=== PATIENT | male | born 1945 | race Caucasian/White ===

== ENCOUNTER 2020-12-28 14:23 | Emergency (ER) | payer OTHER ==
[~2020-12-28] VITALS: Ht 182.9 cm; Wt 77.1 kg
--- NOTE | ~2020-12-28 | EMS ---
[facility] [address] [place] [address] EMS Patient Care Report Name: RENETTA GAY Room #: DEP KATE Silverman#: [id number] Admission: 12/28/20 Attend Phys: Discharge: 12/28/20 Date of : 43 Report #: [id number] THIS REPORT FOR: //name// Report Transmitted: 12/29/2020 07:45 EMS Care Summary [facility] [id number] @ 12/28/2020 13:15 Incident Location [address] [facility] 112 Patient RENETTA GAY Male, 75 Years 1945 Patient Address [address] [place] [address] Patient History Diabetes,Novel Coronavirus (COVID-19), Patient Allergies No known allergies, Chief Complaint pulled out picc line Disposition Transported No Lights/[place] Dispatch Reason Sick Person Transported To [facility] Narrative chief complaint: 75 y/o male needing a picc line placed. tech states: doctor order that pt needs a picc line placed, we do not have a picc team here so he needs to go to hospital. he is covid positive for about a [facility] [address] [place] [address] EMS Patient Care Report Name: RENETTA GAY Room #: DEP KATE Silverman#: [id number] Admission: 12/28/20 Attend Phys: Discharge: 12/28/20 Date of : 43 Report #: [id number] week. vitals are stable and is at his baseline a&o x4 with some bouts of slight confusion pt denies: cp,sob(at first)n/v/d,pain aos found pt in bed with abcs intact. received report from staff of prison. n95 was placed on pt as pt was covid positive. pt was transferred to stretcher via sheet drag maneuver. pts vitals and loc were assessed. diverted by several hospitals due to high volume. pt became uncooperative with his mask taking it off stating trouble breathing. pt was placed on 2 lpm of o2 via nc for comfort to maintain and keep pts mask on. report was given to receiving facility prior to arrival. en route, pts vitals and loc were monitored with no significant changes. at destination, awaited room to be cleaned and ready. pt was wheeled into assigned room on stretcher. pt was transferred to bed via sheet drag maneuver. gave report to receiving rn. transferred care without complication and went back into service. Initial Vitals @13:53P: 58,R: 16,BP: 142/73,Pain: 0/10,GCS: 15,SpO2: 96,Revised Trauma: 12, @13:38P: 64,R: 16,BP: 130/80,Pain: 0/10,GCS: 15,SpO2: 94,Revised Trauma: 12, Assessments @13:47MENTAL:Event Oriented,Person Oriented,Time Oriented,Place Oriented,SKIN:HEENT:Head/Face: No Abnormalities,Neck/Airway: No Abnormalities,LUNG SOUNDS:General: No Abnormalities,ABDOMEN:General: No Abnormalities,PELVIS//GI:No Abnormalities,EXTREMITIES:Left Leg: Weakness,Left Arm: Weakness,Right Leg: Weakness,Right Arm: Weakness,PULSE:NEURO:No Abnormalities, Impression antique refinisher failure Procedures @13:46ALS AssessmentResponse: UnchangedSucceeded@13:46Oxygen FlowRate: 2 Device: Nasal Cannula (NC) Response: UnchangedSucceeded Timeline 13:14,Call Received 13:14,Psap Call 13:15,Dispatched 13:16,En Route 13:25,Initial Responder On Scene 13:25,On Scene 13:29,At Patient [address] [place] [address] EMS Patient Care Report Name: RENETTA GAY Room #: DEP [facility]#: [id number] Admission: 12/28/20 Attend Phys: Discharge: 12/28/20 Date of : 43 Report #: [id number] 13:37,Depart Scene 13:38,BP: 130/80 M,PULSE: 64,RR: 16 R,SPO2: 94 Ox,ETCO2: ,BG: ,PAIN: 0,GCS: 15, 13:46,ALS Assessment,Response: UnchangedSucceeded, 13:46,Oxygen FlowRate: 2 Device: Nasal Cannula (NC) Response: UnchangedSucceeded, 13:53,BP: 142/73 M,PULSE: 58,RR: 16 R,SPO2: 96 Ox,ETCO2: ,BG: ,PAIN: 0,GCS: 15, 14:11,At Destination 14:33,Call Closed Disclaimer v1.1 Copyright 2020 [employer] This EMS Care Summary contains data elements from the applicable legal record (which may be displayed differently). It is designed to provide pertinent information for the following purposes: continuity of care, clinical quality, and state data reporting. The complete legal record is available to ED staff and administrators of the receiving hospital in [employer]'s Patient Tracker. All data is provided "as is."
[2020-12-28] MEDS ORDERED: APAP W/CODEINE1 TA2 PO (15:23)
[2020-12-28] MEDS ORDERED: ELIQUIS2.5 MG PO (15:24)
[2020-12-28] MEDS ORDERED: DECADRON6 MG PO (15:24)
[2020-12-28] MEDS ORDERED: ZOFRAN4 MG PO (15:26)
[2020-12-28] MEDS ORDERED: CULTURELLE KID1 EAC1 PO (15:26)
[2020-12-28] MEDS ORDERED: SUPER THERAVIT1 EACH PO (15:27)
[2020-12-28] MEDS ORDERED: PROTONIX40 M4 PO (15:27)
[2020-12-28] MEDS ORDERED: VITAMIN C500 M1 PO (15:33)
[2020-12-28] MEDS ORDERED: TRIDERM28.4 GM TOP (15:33)
[2020-12-28] MEDS ORDERED: ZINC50 M3 PO (15:34)
[2020-12-28] MEDS ORDERED: NOXIFOL-D32500 UNIT PO (15:34)
[2020-12-28 16:14] LABS: ABSOLUTE NEUTROPHILS 5.2 thou/uL (1.4-8.2); BASOPHILS 0.6 % (0.0-2.0); EOSINOPHILS 0.3 % (0.0-3.0); HEMATOCRIT 40.3 % (42.0-52.0); HEMOGLOBIN 13.9 gm/dL (14.0-18.0); LYMPHOCYTES 14.8 % (24.0-44.0); MCH 32.2 pg (26.0-34.0); MCHC 34.4 g/dL (28.0-37.0); MCV 93.5 fL (80.0-100.0); MONOCYTES 7.1 % (1.0-8.0); PLATELET COUNT 179 thou/uL (150-400); POLYS 77.2 % (36.0-66.0); RBC 4.31 mil/uL (4.50-6.00); RDW 13.1 % (10.5-14.5); WBC 6.8 thou/uL (4.0-11.0)
[2020-12-28 16:22] LABS: CALCIUM 7.6 mg/dL (8.5-10.1); CREATININE 0.7 mg/dL (0.7-1.3)
[2020-12-28 16:28] LABS: ALBUMIN 2.4 g/dL (3.4-5.0); TOTAL BILIRUBIN 0.9 mg/dL (0.2-1.0); TOTAL PROTEIN 6.4 g/dL (6.4-8.2)
--- NOTE | 2020-12-28 16:30 | NUR ---
VAT CONSULTED FOR MIDLINE PLACEMENT. PT FROM [place], NEEDING IVFS. RIGHT UPPER BASILIC MIDLINE PLACED, TRIMMED 15CM/0CM EXTERNAL. PT TOLERATED WELL. RELEASED FOR USE, PER HOSPITAL VASCULAR ACCESS POLICY.
[2020-12-28 19:59] VITALS: BP 130/69
== END 2020-12-28 20:17 ==
LOC: ER 14:23
PROVIDERS: Emergency Medicine
DX: U07.1 COVID-19 (principal); E87.6 Hypokalemia; Z79.891 Long term (current) use of opiate analgesic; Z79.899 Other long term (current) drug therapy
CPT/HCPCS: 27000